=== PATIENT | female | born 1950 | race Caucasian/White ===

== ENCOUNTER → 2025-01-01 | Outpatient (CLI) | payer MEDICARE ==
--- NOTE | 2025-01-01 14:58 | HMCIMG ---
Right BREAST ULTRASOUND: CLINICAL HISTORY: Follow-up for mammogram Finding: Real-time examination of the [right/left] breast demonstrates homogeneous echotexture throughout the breast without evidence of focal solid or cystic masses. There is a right breast at 8:00 there is a calcification measuring 0.7 x 0.5 x 0.6 cm which correlates with the mammogram. There is no solid hypoechoic lesion seen. IMPRESSION: No solid hypoechoic lesion seen. Calcification which is also seen in the mammogram which appears to be stable.. FINAL ASSESSMENT: ACR: BI-RAD- 2. Benign Finding.
--- NOTE | 2025-01-01 15:00 | HMCIMG ---
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 Tomosynthesis of right breast was obtained. History: This is a 74 years year-old female 3, para 2 Ab 1 for 3D Diagnostic mammogram. Patient has no family history of breast cancer. Patient has no complaint patient is here for follow-up for focal asymmetry of the right breast as interpreted by prior mammography for Reference:Prior mammogram from outside institution from 11/23/2024, 11/25/2023, 11/22/2022 and 11/19/2021 2 is available. Breast composition: Breast composition B: There are scattered areas of fibroglandular density. Finding: The digital mammographic examination of right breast in craniocaudal and mediolateral oblique view along with CAD demonstrates mildly dense. There is a large dystrophic macrocalcification which is also seen in the right breast at 8:00 appears to be unchanged.. There is no evidence of any dendritic mass, cluster microcalcification or architectural distortion. The Tomosynthesis demonstrates no lesion seen. The retromammary fat appears to be normal. IMPRESSION: NO RADIOGRAPHIC EVIDENCE OF MALIGNANT CHANGES. WE WOULD RECOMMEND ANNUAL FOLLOW UP WITH TOMOSYNTHESIS UNLESS OTHERWISE CLINICALLY INDICATED. FINAL ASSESSMENT: ACR: BI-RAD- 2. Benign Finding. NOTE: IF A WORK-UP OF THIS PATIENT LEADS TO A BIOPSY, PLEASE FORWARD A COPY OF THE PATHOLOGY REPORT TO OUR OFFICE REQUIRED BY [facility] EFFECTIVE NOVEMBER 21, 1993. A NEGATIVE MAMMOGRAM SHOULD NOT PRECLUDE BIOPSY OF A CLINICALLY PALPABLE SUSPICIOUS MASS, 10% OF BREAST CANCERS ARE MAMMOGRAPHICALLY OCCULT. THIS MAMMOGRAPHY FACILITY IS FULLY ACCREDITED BY THE [employer]OD AND [employer] (FDA). THANK YOU FOR THIS REFERRAL.
== END | disposition home or self-care (01) ==
LOC: RAH 09:42
PROVIDERS: ATTEND Family Medicine
DX: R92.321 Mammographic fibroglandular density, right breast (principal); R92.8 Other abnormal and inconclusive findings on diagnostic imaging of breast
CPT/HCPCS: 76641; 77061; 77065